=== PATIENT | female | born 1965 | race Caucasian/White ===

== ENCOUNTER 2017-04-09 13:39 | Emergency (ER) | payer BC ==
[~2017-04-09] VITALS: Ht 149.9 cm; Wt 66.5 kg
[2017-04-09] MEDS ORDERED: PEN-VEE K,VEET500 MG PO (18:09)
[2017-04-09] MEDS ORDERED: NAPROXEN500 MG PO (18:09)
[2017-04-09 18:20] VITALS: BP 190/91
== END 2017-04-09 18:21 | disposition home or self-care (01) ==
LOC: EME 13:39
DX: K08.89 Other specified disorders of teeth and supporting structures (principal); S02.5XXA Fracture of tooth (traumatic), initial encounter for closed fracture; M25.512 Pain in left shoulder
CPT/HCPCS: 73030; 99281; 99283